=== PATIENT | female | born 1945 | race Caucasian/White ===

== ENCOUNTER 2018-08-25 12:24 | Inpatient (IN) ==
[2018-08-25] MEDS: Aspirin Enteric Coated 325 MG Tablet PO SCH (20:43)
[2018-08-25] MEDS: *HR* HYDROcodone/Acet 5/325 mg TABLET PO PRN (20:43)
[2018-08-26 05:52] LABS: Basophils % 0.5 %; Eosinophils # 0.3 K/mcL (0.0-0.6); Eosinophils % 3.4 %; Hemoglobin 9.7 g/dL (11.5-15.4); Immature Granulocytes % 0.5 % (0-4); Lymphocytes # 2.2 K/mcL (0.6-4.6); Lymphocytes % 28.3 %; Mean Corpuscular HGB Conc 32.3 g/dL (31.6-35.5); Mean Corpuscular Hemoglobin 31.4 pg (28.0-33.3); Mean Corpuscular Volume 97.1 fL (83.0-100.0); Monocytes # 0.8 K/mcL (0.0-1.3); Monocytes % 9.9 %; Neutrophils # 4.4 K/mcL (1.6-8.9); Platelet Count 170 K/mcL (140-400); Red Blood Count 3.09 M/mcL (3.82-4.97); Red Cell Distribution Width 13.6 % (11.5-14.5); Segmented Neutrophils % 57.4 %
[2018-08-26 05:59] LABS: INR 1.1; Prothrombin Time 12.3 Seconds (9.4-12.1)
[2018-08-26 06:01] LABS: Activated Partial Thrombo Time 28.7 Seconds (26.0-36.0)
[2018-08-26 06:10] LABS: BUN/Creatinine Ratio 23 (6-26); Blood Urea Nitrogen 19 mg/dL (8-23); Calcium 8.9 mg/dL (8.6-10.3); Carbon Dioxide 29 mEq/L (23-29); Chloride 104 mEq/L (98-107); Glucose 120 mg/dL (70-105); Osmolality,Calculated 293 (280-300); Potassium 4.2 mEq/L (3.5-5.1); Sodium 140 mEq/L (136-145); eGFR For Non-African Americans > 60 (> 60)
[2018-08-26] MEDS: *HR* HYDROcodone/Acet 5/325 mg TABLET PO PRN ×3 (06:16→21:07)
[2018-08-26] MEDS: Lisinopril 20 MG TABLET PO SCH (09:53)
[2018-08-26] MEDS: Aspirin Enteric Coated 325 MG Tablet PO SCH ×2 (09:53→16:34)
[2018-08-26] MEDS: Multivit/Ca/Min/Fe/FA 1 TAB TABLET PO SCH (09:53)
--- NOTE | 2018-08-26 12:14 | Internal Med History&Physical ---
Date of Encounter: 08/26/18 Time of Encounter: 12:12 Assessment and Plan (1) Status post total left knee replacement Current visit: Yes Status: Acute Patient admitted to this facility for further rehabilitation due to deconditioning secondary to her left total knee replacement. Left knee with noted ecchymosis surrounding incision and along the posterior and inner thigh. Surgical incision remains dry and intact with no erythema. Ecchymotic areas ap pear to be in different stages of healing with no acute bleeding noted. Patient states that she had a CPM machine that was in use prior to her discharge from acute facility. Patient states that pain to her left knee has been well- tolerated with current medications and that she has been mobilizing well with physical therapy. His icing is has been in use. Patient currently remains on aspirin. We will continue with current therapy and plan a care. (2) Hypertension Current visit: Yes Status: Chronic Vital signs stable. We will continue with current medications. Qualifiers: Hypertension type: unspecified Qualified Code(s): I10 - Essential (primary) hypertension (3) Acute blood loss anemia Current visit: Yes Status: Acute Patient with recent hemoglobin today of 9.7. Noted moderate amount of ecchymosis to her left thigh and surrounding her left surgical knee. No acute bleeding noted and ecchymotic areas noted to be in various stages of healing. We will continue to monitor hemoglobin with serial labs Internal Medicine - H&P: HPI Chief complaint: Left TKR Admitted From: Intrahospital Transfer Plans for Post Hospital Care: Home History of present illness: Ms. Collins is a 73 year old female who was admitted to this facility from an [facility] after having a left total knee replacement. Per medical records patient's immediate recovery was uneventful and she was transferred to this facility for further rehabilitation due to deconditioning secondary to her left total knee replacement that was performed on 08/21/2018. Left knee surgical incision appears dry and intact with a moderate amount of ecchymosis surrounding the surgical incision. Patient also noted to have a large amount of ecchymosis underneath her lateral left thigh and also to the left medial thigh. Patient states that she had a CPM machine that was in use postoperatively. No drainage noted from the incision. No erythema. Patient states that her pain has been well tolerated with current medications. Patient states that she has been progressing well with physical therapy and mobilizing well. Patient has continuous icing that is in use. Patient has a history of osteoarthritis and hy pertension. Denies any other discomforts or shortness of breath. Past Med Surg Social Fam HX - Past Medical History Medical history: hypertension Additional medical history: OA Psychiatric history: no psych history - Past Surgical History Additional surgical history: Lumpectomy - Social History Smoking Status: Never smoker Smokeless Tobacco Status: No Alcohol use: none Drug use: none - Family History Mother Hx Family Cardiac Disorders: Yes Internal Medicine - H&P: Meds Aspirin Enteric Coated [Aspirin EC] 325 mg PO BID #20 tablet.dr 08/21/18 [Rx] Lisinopril [Zestril] 20 mg PO DAILY 08/21/18 [History] Multivitamin [Multivitamins] 1 cap PO DAILY 08/21/18 [History] Scopolamine Patch [Transderm-Scop] 1.5 mg TD Q72H patch.td72 08/25/18 [Rx] Allergy/AdvReac Type Severity Reaction Status Date / Time No Known Allergies Allergy Verified 08/21/18 12:03 All Systems PM: A 10-system review of systems was performed and is negative for pertinent findings except as documented above in the HPI. - Constitutional Constitutional: as per HPI, no chills, no fever(s), no night sweats - EENT Eyes: no change in vision, no discharge, no pain, no photophobia Ears: no ear discharge, no ear pain, no tinnitus Nose, mouth and throat: no dysphagia, no nasal discharge, no neck pain, no sore throat - Cardiovascular Cardiovascular ROS IM: as per HPI, no chest pain, no diaphoresis, no dyspnea, no lightheadedness, no palpitations, no syncope - Respiratory Respiratory: as per HPI, no cough, no dyspnea, no wheezing, no excessive phlegm production - Gastrointestinal Gastrointestinal: no abdominal pain, no diarrhea, no hematemesis, no hematochezia, no melena, no nausea, no vomiting - Genitourinary Genitourinary: no change in urinary stream, no dysuria, no flank pain, no hematuria - Musculoskeletal Musculoskeletal ROS IM: as per HPI, no numbness, no tingling - Integumentary Integumentary IM: no rash, no unusual bruising - Neurological Neurological ROS: no confusion, no convulsions, no focal weakness, no numbness, no tingling, no tremor(s) - Hematologic/Lymphatic Hematologic/Lymphatic: no easy bruising - Constitutional Vitals: Temp Pulse Resp BP Pulse Ox 98.5 F 63 18 138/67 94 08/26/18 07:00 08/26/18 07:00 08/26/18 07:00 08/26/18 07:00 08/26/18 07:00 - Head Head exam: Present: atraumatic, normocephalic - Eye Eye exam: Present: PERRL, conjuntiva pink, sclera anicteric Pupils: Present: PERRL - Neck Neck exam general surgery: Present: supple, trachea midline. Absent: lymphadenopathy - Respiratory Respiratory exam: Present: CTAB. Absent: accessory muscle use, rales, rhonchi, wheezes - Cardiovascular Cardiovascular exam: Present: RRR, +S1, +S2. Absent: diastolic murmur, gallop, rubs, systolic murmur - GI/Abdominal GI/Abdominal exam: Present: normal bowel sounds, soft, no peritoneal signs. Absent: distended, tenderness - Extremities Exam Extremities exam: Present: warm, radial pulses palpable and symmetrical. Absent: calf tenderness, cyanotic, pedal edema Additional comments: Left knee and thigh appears slightly swollen. Left knee with midline surgical incision that is dry and intact with moderate amount of ecchymosis surrounding incision. No erythema. Patient with moderate ecchymosis noted to her left lateral posterior thigh and to the left medial thigh. Ecchymotic areas remain soft on palpation and nontender. Ecchymotic areas appear to be in various stages of healing. - Neurological Exam Neurological exam: Present: CN II-XII intact, oriented X3, no focal deficits. Absent: pronater drift, facial droop, speech deficit - Skin Skin exam: Present: dry, intact Internal Med - H&P Results - Labs CBC & Chem 7: 08/26/18 05:25 08/26/18 05:25 Labs: Short CBC 08/26/18 Range/Units 05:25 WBC 7.7 (4.3-11.1) K/mcL Hgb 9.7 L (11.5-15.4) g/dL Hct 30.0 L (35.3-44.9) % Plt Count 170 (140-400) K/mcL Neutrophils # 4.4 (1.6-8.9) K/mcL [facility] 08/26/18 05:25 Sodium 140 Potassium 4.2 Chloride 104 Carbon Dioxide 29 BUN 19 Creatinine 0.84 Glucose 120 H Calcium 8.9
--- NOTE | 2018-08-26 14:38 | Internal Med Progress Note ---
Date of Encounter: 08/26/18 Time of Encounter: 14:36 - Assessment and plan (1) Status post total left knee replacement Current Visit: Yes Status: Acute Assessment and plan: S/p knee replacement seems to be doing well and improving no other issues. Pain is well controlled. (2) Hypertension Current Visit: No Status: Chronic Assessment and plan: stable on meds continue to monitor and adjust meds as needed Qualifiers: Hypertension type: unspecified Qualified Code(s): I10 - Essential (primary) hypertension (3) Acute blood loss anemia Current Visit: Yes Status: Acute Assessment and plan: anemia , most likely due to surgery there is also a large bruise on her thigh as well which seems more like few days old however she noticed today add iron supplement and followup - Subjective Interval history: cross coverage no acute issues she noticed large bruise on her left thigh this morning . pain is el controlled on surgical site No fever or chill doesn't know if she hurt herself overall doing better no SOB no chest pain nausea vomiting or diarrhea - Constitutional Vitals: Temp Pulse Resp BP Pulse Ox 99.0 F 64 18 150/80 99 08/26/18 11:00 08/26/18 11:00 08/26/18 11:00 08/26/18 11:00 08/26/18 11:00 General appearance: Present: A&O X 3, pleasant. Absent: no acute distress - Head Head exam: Present: atraumatic - Eye Eye exam: Present: EOMI, PERRL Pupils: Present: PERRL - Neck Neck exam general surgery: Present: full ROM, supple. Absent: tenderness, nuchal rigidity - Respiratory Respiratory exam: Present: CTAB. Absent: respiratory distress, stridor, w heezes, tachypnea - Cardiovascular Cardiovascular exam: Present: RRR, +S1. Absent: JVD, systolic murmur - GI/Abdominal GI/Abdominal exam: Present: normal bowel sounds, soft. Absent: distended, rebound, rigid - Extremities Exam Extremities exam: Absent: pedal edema Additional comments: large bruise noted inside left thigh etending to her back no obvious skin brekas or trauma noted .Bruise by color seems some what old few days old - Incison Incision: Present: clean and dry, intact. Absent: draining, swollen, erythema, purulent, indurated, serous, serosanguinous - Neurological Exam Neurological exam: Present: CN II-XII intact, oriented X3, no focal deficits, strengths equal and symetr throughout. Absent: facial droop, speech deficit Internal Medicine: Result - Labs CBC & Chem 7: 08/26/18 05:25 08/26/18 05:25 Labs: Short CBC 08/26/18 Range/Units 05:25 WBC 7.7 (4.3-11.1) K/mcL Hgb 9.7 L (11.5-15.4) g/dL Hct 30.0 L (35.3-44.9) % Plt Count 170 (140-400) K/mcL Neutrophils # 4.4 (1.6-8.9) K/mcL BMP 08/26/18 05:25 Sodium 140 Potassium 4.2 Chloride 104 Carbon Dioxide 29 BUN 19 Creatinine 0.84 Glucose 120 H Calcium 8.9 - ABG Interpretation ABG results: PT/INR, D-dimer PT 12.3 Seconds (9.4-12.1) H 08/26/18 05:25 Consult Discharge Plan - Plan Referrals: Konstantin George MD [Partnered Physician] - 09/21/18 7:45 am Raquel El PAC [Physician Day Haul Youth Supervisor] - 09/01/18 9:15 am
[2018-08-27] MEDS: *HR* HYDROcodone/Acet 5/325 mg TABLET PO PRN ×3 (06:43→21:51)
--- NOTE | 2018-08-27 09:02 | Internal Med Progress Note ---
Date of Encounter: 08/27/18 Time of Encounter: 09:00 - Assessment and plan (1) Status post total left knee replacement Current Visit: Yes Status: Acute Assessment and plan: Improving and doing well . pain is well controlled No sign of any infection (2) Hypertension Current Visit: No Status: Chronic Assessment and plan: stable no acute issues . Continue to monitor Qualifiers: Hypertension type: unspecified Qualified Code(s): I10 - Essential (primary) hypertension (3) Acute blood loss anemia Current Visit: Yes Status: Acute Assessment and plan: Stable started on iron supplement should increase in few weeks asymptomatic - Subjective Interval history: cross coverage no acute issues doing well her pain is well controlled and she is actively participating in her rehab - Constitutional Vitals: Temp Pulse Resp BP Pulse Ox 98.5 F 68 18 126/75 100 08/26/18 21:00 08/26/18 21:00 08/26/18 21:00 08/26/18 21:00 08/26/18 21:00 General appearance: Present: A&O X 3, pleasant, answers questions appropriately. Absent: no acute distress - Head Head exam: Present: atraumatic - Eye Eye exam: Present: EOMI, scleral icterus Pupils: Present: PERRL - Neck Neck exam general surgery: Present: full ROM, supple. Absent: nuchal rigidity - Respiratory Respiratory exam: Present: CTAB. Absent: respiratory distress, rhonchi, stridor - Cardiovascular Cardiovascular exam: Present: RRR, +S1, +S2. Absent: JVD, tachycardia - GI/Abdominal GI/Abdominal exam: Present: normal bowel sounds, soft. Absent: distended, guarding, rebound, rigid, tenderness - Extremities Exam Extremities exam: Absent: tenderness, warm Additional comments: bruise getting better - Incison Incision: Present: clean and dry, intact. Absent: red, swollen, inflamed, erythema, indurated - Neurological Exam Neurological exam: Present: CN II-XII intact, oriented X3, no focal deficits, strengths equal and symetr throughout. Absent: facial droop, speech deficit Internal Medicine: Result - Labs CBC & Chem 7: 08/26/18 05:25 08/26/18 05:25 - ABG Interpretation ABG results: PT/INR, D-dimer PT 12.3 Seconds (9.4-12.1) H 08/26/18 05:25 Consult Discharge Plan - Plan Referrals: Konstantin eGorge MD [Partnered Physician] - 09/21/18 7:45 am Raquel El PAC [Physician Metal Tank Builder] - 09/01/18 9:15 am
[2018-08-27] MEDS: Lisinopril 20 MG TABLET PO SCH (09:08)
[2018-08-27] MEDS: Multivit/Ca/Min/Fe/FA 1 TAB TABLET PO SCH (09:08)
[2018-08-27] MEDS: Aspirin Enteric Coated 325 MG Tablet PO SCH ×2 (09:09→17:42)
[2018-08-28] MEDS: Aspirin Enteric Coated 325 MG Tablet PO SCH ×2 (08:01→17:14)
[2018-08-28] MEDS: Multivit/Ca/Min/Fe/FA 1 TAB TABLET PO SCH (08:01)
[2018-08-28] MEDS: *HR* HYDROcodone/Acet 5/325 mg TABLET PO PRN ×3 (08:02→20:22)
[2018-08-28] MEDS: Lisinopril 20 MG TABLET PO SCH (08:02)
[2018-08-28] MEDS: Scopolamine Patch 1.5 MG PATCH.TD72 TD SCH (08:03)
--- NOTE | 2018-08-28 08:52 | Internal Med Progress Note ---
Date of Encounter: 08/28/18 Time of Encounter: 08:50 - Assessment and plan (1) Status post total left knee replacement Current Visit: Yes Status: Acute Assessment and plan: doing well stable no active issues wound is healing well Pain is well controlled on present meds (2) Hypertension Current Visit: No Status: Chronic Assessment and plan: systolic noted to be little high today will follow no new change in meds for now Qualifiers: Hypertension type: unspecified Qualified Code(s): I10 - Essential (primary) hypertension (3) Acute blood loss anemia Current Visit: Yes Status: Acute Assessment and plan: h/h is stable for now On iron supplement followup as needed - Subjective Interval history: cross coverage no acute issues doing well her pain is well controlled and she is actively participating in her rehab. Pain same time but feels that meds are helping her - Constitutional Vitals: Temp Pulse Resp BP Pulse Ox 98.4 F 83 18 155/75 96 08/28/18 07:09 08/28/18 07:09 08/28/18 07:09 08/28/18 07:09 08/28/18 07:09 General appearance: Present: A&O X 3, pleasant, answers questions appropriately. Absent: no acute distress - Head Head exam: Present: atraumatic - Eye Eye exam: Present: EOMI, PERRL. Absent: scleral icterus, conjuntiva pink - Neck Neck exam general surgery: Present: supple. Absent: tenderness, nuchal rigidity - Respiratory Respiratory exam: Present: CTAB. Absent: chest wall tenderness, respiratory distress, rhonchi, stridor, wheezes, tachypnea - Cardiovascular Cardiovascular exam: Present: RRR, +S1, +S2. Absent: irregular rhythm, JVD - GI/Abdominal GI/Abdominal exam: Present: normal bowel sounds, soft. Absent: distended, guarding, rebound, rigid - Extremities Exam Extremities exam: Absent: pedal edema, tenderness - Incison Incision: Present: clean and dry, intact. Absent: red, swollen, inflamed - Neurological Exam Neurological exam: Present: CN II-XII intact. Absent: no focal deficits, strengths equal and symetr throughout, pronater drift, facial droop, speech deficit Internal Medicine: Result - Labs CBC & Chem 7: 08/26/18 05:25 08/26/18 05:25 - ABG Interpretation ABG results: PT/INR, D-dimer PT 12.3 Seconds (9.4-12.1) H 08/26/18 05:25 Consult Discharge Plan - Plan Referrals: Konstantin George MD [Partnered Physician] - 09/21/18 7:45 am Raquel El PAC [Physician Toaster Operator] - 09/01/18 9:15 am
[2018-08-29] MEDS: *HR* HYDROcodone/Acet 5/325 mg TABLET PO PRN ×3 (05:53→19:34)
--- NOTE | 2018-08-29 08:00 | Internal Med Progress Note ---
Date of Encounter: 08/29/18 Time of Encounter: 07:58 - Assessment and plan (1) Status post total left knee replacement Current Visit: Yes Status: Acute Assessment and plan: doing well stable no active issues wound is healing well Pain is well controlled on present meds overall stable (2) Hypertension Current Visit: No Status: Chronic Assessment and plan: stable no new change continue to follow Qualifiers: Hypertension type: unspecified Qualified Code(s): I10 - Essential (primary) hypertension (3) Acute blood loss anemia Current Visit: Yes Status: Acute Assessment and plan: stable labs for tomorrow on iron - Subjective Interval history: cross coverage no acute issues doing well her pain is well controlled and she is actively participating in her rehab. pain well controlled - Constitutional Vitals: Temp Pulse Resp BP Pulse Ox 97.3 F L 72 18 139/69 96 08/28/18 19:27 08/28/18 19:27 08/28/18 19:27 08/28/18 19:27 08/28/18 19:27 General appearance: Present: A&O X 3, pleasant, answers questions appropriately. Absent: no acute distress - Head Head exam: Present: atraumatic - Eye Eye exam: Present: EOMI, PERRL. Absent: scleral icterus Pupils: Present: PERRL - Neck Neck exam general surgery: Present: full ROM, supple. Absent: tenderness, nuchal rigidity, thyromegaly - Respiratory Respiratory exam: Present: CTAB. Absent: chest wall tenderness, rales, respiratory distress, rhonchi, stridor, wheezes - Cardiovascular Cardiovascular exam: Present: RRR, +S1, +S2. Absent: irregular rhythm, JVD - GI/Abdominal GI/Abdominal exam: Present: normal bowel sounds, soft. Absent: distended, firm, guarding, rebound, rigid - Extremities Exam Extremities exam: Absent: pedal edema, tenderness - Incison Incision: Present: clean and dry, intact Comments: bruise on leg improving - Neurological Exam Neurological exam: Present: CN II-XII intact, oriented X3, no focal deficits, strengths equal and symetr throughout. Absent: pronater drift, facial droop, speech deficit Internal Medicine: Result - Labs CBC & Chem 7: 08/26/18 05:25 08/26/18 05:25 - ABG Interpretation ABG results: PT/INR, D-dimer PT 12.3 Seconds (9.4-12.1) H 08/26/18 05:25 Consult Discharge Plan - Plan Referrals: Konstantin George MD [Partnered Physician] - 09/21/18 7:45 am Raquel El PAC [Physician Relay Technician] - 09/01/18 9:15 am
[2018-08-29] MEDS: Lisinopril 20 MG TABLET PO SCH (08:40)
[2018-08-29] MEDS: Multivit/Ca/Min/Fe/FA 1 TAB TABLET PO SCH (08:40)
[2018-08-29] MEDS: Aspirin Enteric Coated 325 MG Tablet PO SCH ×2 (08:40→17:45)
[2018-08-29] MEDS: Aspirin 325 MG TABLET PO SCH (18:07)
[2018-08-30] MEDS: *HR* HYDROcodone/Acet 5/325 mg TABLET PO PRN ×2 (05:09→20:48)
[2018-08-30 05:35] LABS: Basophils % 0.4 %; Eosinophils # 0.4 K/mcL (0.0-0.6); Hematocrit 31.7 % (35.3-44.9); Hemoglobin 10.2 g/dL (11.5-15.4); Immature Granulocytes % 0.4 % (0-4); Lymphocytes # 2.7 K/mcL (0.6-4.6); Lymphocytes % 34.7 %; Mean Corpuscular HGB Conc 32.2 g/dL (31.6-35.5); Mean Corpuscular Hemoglobin 31.4 pg (28.0-33.3); Mean Corpuscular Volume 97.5 fL (83.0-100.0); Mean Platelet Volume 10.2 fL (9.4-12.4); Monocytes # 0.7 K/mcL (0.0-1.3); Monocytes % 9.4 %; Neutrophils # 3.9 K/mcL (1.6-8.9); Platelet Count 256 K/mcL (140-400); Red Blood Count 3.25 M/mcL (3.82-4.97); Red Cell Distribution Width 13.3 % (11.5-14.5); Segmented Neutrophils % 50.1 %
[2018-08-30 05:41] LABS: INR 1.1; Prothrombin Time 12.6 Seconds (9.4-12.1)
[2018-08-30 05:53] LABS: BUN/Creatinine Ratio 29 (6-26); Blood Urea Nitrogen 20 mg/dL (8-23); Calcium 9.3 mg/dL (8.6-10.3); Carbon Dioxide 26 mEq/L (23-29); Chloride 107 mEq/L (98-107); Glucose 105 mg/dL (70-105); Osmolality,Calculated 293 (280-300); Potassium 4.3 mEq/L (3.5-5.1); Sodium 140 mEq/L (136-145); eGFR For Non-African Americans > 60 (> 60)
[2018-08-30] MEDS: Multivit/Ca/Min/Fe/FA 1 TAB TABLET PO SCH (08:02)
[2018-08-30] MEDS: Aspirin 325 MG TABLET PO SCH (08:02)
[2018-08-30] MEDS: Lisinopril 20 MG TABLET PO SCH (08:02)
--- NOTE | 2018-08-30 11:43 | Internal Med Progress Note ---
Addendum entered and electronically signed by Amalia Khan 08/31/18 16:07: I have personally performed a face to face evaluation on this patient. I have reviewed and agree with the care plan. History and Exam by me shows: knee is nontender no effusion calf no edema pulses symetric Original Note: Date of Encounter: 08/30/18 Time of Encounter: 11:41 - Assessment and plan (1) Status post total left knee replacement Current Visit: Yes Status: Acute Assessment and plan: Improving. Continue PT and OT. Continue continue current pain medication. Follow up with ortho as scheduled. (2) Hypertension Current Visit: Yes Status: Chronic Assessment and plan: Trouble with current medication. Monitor blood pressure. Qualifiers: Hypertension type: unspecified Qualified Code(s): I10 - Essential (primary) hypertension (3) Acute blood loss anemia Current Visit: Yes Status: Acute Assessment and plan: Hemoglobin stable at 10.2. Will continue to monitor. - Time Spent With Patient less than 15 minutes - Subjective Interval history: Participating well with therapy. Pain controlled with Ney. Ambulating with Walker in hallway's was physical therapy. Denies fever, chills, nausea, vomiting or diarrhea. Denies shortness of breath or chest pain. Maintaining appetite and hydration. Last bowel movement was this morning. - Constitutional Vitals: Temp Pulse Resp BP Pulse Ox 97.8 F 74 16 147/72 95 08/30/18 07:21 08/30/18 07:21 08/30/18 07:21 08/30/18 07:21 08/30/18 07:21 General appearance: Present: A&O X 3, pleasant, answers questions appropriately. Absent: no acute distress - Head Head exam: Present: atraumatic, normocephalic - Eye Eye exam: Present: PERRL, conjuntiva pink, sclera anicteric Pupils: Present: PERRL - Neck Neck exam general surgery: Present: supple, trachea midline. Absent: lymp hadenopathy - Respiratory Respiratory exam: Present: CTAB. Absent: accessory muscle use, rales, rhonchi, wheezes - Cardiovascular Cardiovascular exam: Present: RRR, +S1, +S2. Absent: diastolic murmur, gallop, rubs, systolic murmur - GI/Abdominal GI/Abdominal exam: Present: normal bowel sounds, soft, no peritoneal signs. Absent: distended, tenderness - Extremities Exam Extremities exam: Present: warm, radial pulses palpable and symmetrical. Absent: calf tenderness, cyanotic, pedal edema - Incison Comments: Left knee incision dressing dry and intact. Surrounding edema with ecchymosis. - Neurological Exam Neurological exam: Present: CN II-XII intact, oriented X3, no focal deficits. Absent: pronater drift, facial droop, speech deficit - Skin Skin exam: Present: dry, intact Internal Medicine: Result - Labs CBC & Chem 7: 08/30/18 05:10 08/30/18 05:10 Labs: Short CBC 08/30/18 Range/Units 05:10 WBC 7.8 (4.3-11.1) K/mcL Hgb 10.2 L (11.5-15.4) g/dL Hct 31.7 L (35.3-44.9) % Plt Count 256 D (140-400) K/mcL Neutrophils # 3.9 (1.6-8.9) K/mcL BMP 08/30/18 05:10 Sodium 140 Potassium 4.3 Chloride 107 Carbon Dioxide 26 BUN 20 Creatinine 0.70 Glucose 105 Calcium 9.3 - ABG Interpretation ABG results: PT/INR, D-dimer PT 12.6 Seconds (9.4-12.1) H 08/30/18 05:10 Consult Discharge Plan - Plan Referrals: Konstantin George MD [Partnered Physician] - 09/21/18 7:45 am Raquel El PAC [Physician Helper Driver] - 09/01/18 9:15 am
[2018-08-30] MEDS: Aspirin Enteric Coated 325 MG Tablet PO SCH (16:44)
[2018-08-31 06:46] VITALS: BP 123/58
[2018-08-31] MEDS: Multivit/Ca/Min/Fe/FA 1 TAB TABLET PO SCH (08:24)
[2018-08-31] MEDS: *HR* HYDROcodone/Acet 5/325 mg TABLET PO PRN (08:24)
[2018-08-31] MEDS: Aspirin Enteric Coated 325 MG Tablet PO SCH (08:24)
[2018-08-31] MEDS: Lisinopril 20 MG TABLET PO SCH (08:24)
[2018-08-31] MEDS: Scopolamine Patch 1.5 MG PATCH.TD72 TD SCH (08:25)
--- NOTE | 2018-08-31 10:21 | Discharge Summary ---
Addendum entered and electronically signed by Amalia Khan 08/31/18 16:09: I have personally performed a face to face evaluation on this patient. I have reviewed and agree with the care plan. History and Exam by me shows: pt is alert and using walker well No complaints of pain. left knee looks improved Original Note: Orders not resulted at time of discharge: Pending orders 09/06/18 04:00 BMP [Basic Metabolic Panel] MO Complete Blood Count [HEME] MO PT/INR [Prothrombin Time INR] [COAG] MO 09/13/18 04:00 BMP [Basic Metabolic Panel] MO Complete Blood Count [HEME] MO PT/INR [Prothrombin Time INR] [COAG] MO 09/20/18 04:00 BMP [Basic Metabolic Panel] MO Complete Blood Count [HEME] MO PT/INR [Prothrombin Time INR] [COAG] MO 09/27/18 04:00 BMP [Basic Metabolic Panel] MO Complete Blood Count [HEME] MO PT/INR [Prothrombin Time INR] [COAG] MO Date of Encounter: 08/31/18 Time of Encounter: 10:19 - Discharge Diagnosis (1) Status post total left knee replacement Priority: Primary Status: Acute Comments: Patient had a left total knee replacement and was admitted to this facility due to deconditioning secondary to her left total knee replacement. Patient's recovery has been uneventful. Surgical incision remains dry and intact with moderate amount of healing ecchymosis noted surrounding incision and left eye. Patient has progressed well with physical therapy. Pain has been well- controlled with current oral medications. Patient is to follow-up with orthopedic surgeon and PCP after discharge. Patient will continue her physical therapy as an outpatient at this facility. (2) Hypertension Priority: Secondary Status: Chronic Comments: No issues during her stay at this facility. Vital signs have remained stable. Patient is continue with current home medications and follow-up with PCP after discharge Qualifiers: Hypertension type: unspecified Qualified Code(s): I10 - Essential (primary) hypertension (3) Acute blood loss anemia Priority: Secondary Status: Acute Comments: No acute issues during her stay at this facility. Patient's hemoglobin has remained stable during her stay at this facility. Patient is to follow-up with PCP after discharge Hospital course: Ms. Collins is a 73 year old female, who was admitted to this facility from an [facility] after having a left total knee replacement. Per medical records patient's immediate recovery was uneventful and she was transferred to this facility for further rehabilitation due to deconditioning secondary to her left total knee replacement that was performed on 08/21/2018. Left knee surgical incision appears dry and intact with a moderate amount of ecchymosis surrounding the surgical incision. Patient also noted to have a large amount of ecchymosis underneath her lateral left thigh and also to the left medial thigh. Patient states that she had a CPM machine that was in use postoperatively. No drainage noted from the incision. No erythema. Patient states that her pain has been well tolerated with current medications. Patient states that she has been progressing well with physical therapy and mobilizing well. Patient willl be discharged to home and will continue her physical therapy as an outpatient at this facility. Patient is a continue follow-up with orthopedic surgeon and her PCP in 1 week. Discharge discussed with: patient Time spent discussing smoking cessation with patient: 3 to 10 minutes - Time Spent with Patient Total time spent providing and/or coordinating discharge services: Less than 30 minutes - Discharge Medications Home Medications: Aspirin Enteric Coated [Aspirin EC] 325 mg PO BID #20 tablet.dr 08/21/18 [Rx] Lisinopril [Zestril] 20 mg PO DAILY 08/21/18 [History] Multivitamin [Multivitamins] 1 cap PO DAILY 08/21/18 [History] Scopolamine Patch [Transderm-Scop] 1.5 mg TD Q72H patch.[id number] 08/25/18 [Rx] Allergies/Adverse Reactions: Allergy/AdvReac Type Severity Reaction Status Date / Time No Known Allergies Allergy Verified 08/21/18 12:03 Date of admission: 08/25/18 17:41 Primary care physician: Beatriz Valiente Consults: 08/25/18 18:17 Consult to Physical Therapy [CONS] Routine Comment: Evaluate, develop and implement POC Reason for Consult: s/p knee replacement Does patient have active BEDREST order?: No Is patient medically & hemodynamically stable?: Yes 08/25/18 18:18 Consult to Occupational Therapy [CONS] Routine Comment: Evaluate, develop and implement POC Reason for Consult: s/p knee replacement Does patient have active BEDREST order?: No Is patient medically & hemodynamically stable?: Yes Consult to Recreational Therapy [CONS] Routine Comment: 08/25/18 18:19 Consult to Physical Medicine/Rehab [CONS] Routine Reason for Consult: s/p knee replacement Call Completed: Yes Discharging clinician: Amalia Khan - Constitutional Vitals: Temp Pulse Resp BP Pulse Ox 97.6 F 68 16 123/58 98 08/31/18 06:45 08/31/18 06:45 08/31/18 06:45 08/31/18 06:45 08/31/18 06:45 General appearance: Present: A&O X 3, pleasant, answers questions appropriately. Absent: no acute distress - Head Head exam: Present: atraumatic, normocephalic - Eye Eye exam: Present: PERRL, conjuntiva pink, sclera anicteric Pupils: Present: PERRL - Neck Neck exam general surgery: Present: supple, trachea midline. Absent: lymphadenopathy - Respiratory Respiratory exam: Present: CTAB. Absent: accessory muscle use, rales, rhonchi, wheezes - Cardiovascular Cardiovascular exam: Present: RRR, +S1, +S2. Absent: diastolic murmur, gallop, rubs, systolic murmur - GI/Abdominal GI/Abdominal exam: Present: normal bowel sounds, soft, no peritoneal signs. Absent: distended, tenderness - Extremities Exam Extremities exam: Present: warm, radial pulses palpable and symmetrical. Absent: calf tenderness, cyanotic, pedal edema Additional comments: Left knee with midline incision that appears dry and intact. No erythema noted. Patient with moderate ecchymosis noted surrounding surgical incision and to the left lateral and left medial thigh, which appears to be in various stages of healing. - Neurological Exam Neurological exam: Present: CN II-XII intact, oriented X3, no focal deficits. Absent: pronater drift, facial droop, speech deficit - Skin Skin exam: Present: dry, intact - Patient Status Disposition: Home, Self-Care Condition: Good Functional capacity at discharge: uses cane/walker Overall status at discharge: patient is progressing back to baseline - Discharge Instructions Follow Up With: Konstantin George MD [Partnered Physician] - 09/21/18 7:45 am Raquel El PAC [Physician Sample Checker] - 09/01/18 9:15 am - Diet and Activity Activity: ambulate only with your walker, as per physical therapy Diet: advance to your usual diet
== END 2018-08-31 14:30 | disposition home or self-care (01) | DRG 560 ==
LOC: INPGRE 17:41